=== PATIENT | male | born 1945 | race Caucasian/White ===

== ENCOUNTER 2018-02-27 09:51 | Inpatient (IN) | payer OTHER ==
[2018-02-24 10:56] VITALS: BP 117/51
[2018-02-24 11:05] LABS: BASOPHILS # (AUTO) 0.05 x10^3/uL (0-0.1); BASOPHILS % (AUTO) 1 % (0-1); EOSINOPHILS # (AUTO) 0.38 x10^3/uL (0-0.4); EOSINOPHILS % (AUTO) 5 % (1-7); LYMPHOCYTES # (AUTO) 2.18 x10^3/uL (1-3.4); LYMPHOCYTES % (AUTO) 31 % (22-44); MD NO; MEAN CORPUSCULAR HEMOGLOBIN 30.8 pg (27.5-34.5); MEAN CORPUSCULAR VOLUME 90.5 fL (81-97); MEAN PLATELET VOLUME 8.8 fL (7.4-10.4); MONOCYTES # (AUTO) 0.53 x10^3/uL (0.2-0.8); MONOCYTES % (AUTO) 8 % (2-9); NEUTROPHILS # (AUTO) 3.81 x10^3/uL (1.8-6.8); NEUTROPHILS % (AUTO) 55 % (42-75); PLATELET COUNT 320 x10^3/uL (130-400); RED CELL DISTRIBUTION WIDTH 12.8 % (9.4-14.8)
[2018-02-24 11:17] LABS: ANION GAP 7 mmol/L (5-15); CALCIUM 9.8 mg/dL (8.5-10.1); CHLORIDE 106 mmol/L (98-107); CREATININE 1.33 mg/dL (0.7-1.3)
[~2018-02-27] VITALS: Ht 175.3 cm; Wt 108.4 kg
[~2018-02-27 09:51] MED LIST: ASPI500T10 PO; CYAN500T18 PO; FLAX10002 PO; HUM100VI6 SQ-INSULIN; INSU100V8 SQ; LISI-167 PO; METF10002 PO; MULT-717 PO; NIAC10002 PO; OMEG500C PO; ROSU10TA PO; cholecalciferol PO
[2018-02-27] MEDS: SODIUM CHLORIDE 0.9% 1,000 ML IV SCH ×2 (10:05→18:05)
[2018-02-27] MEDS ORDERED: CEFAZOLIN PMX 1GM/50ML 50 ML IVPB ONE (10:30)
[2018-02-27 10:45] LABS: ANION GAP 8 mmol/L (5-15); CALCIUM 8.8 mg/dL (8.5-10.1); CHLORIDE 109 mmol/L (98-107); CREATININE 1.17 mg/dL (0.7-1.3)
[2018-02-27] MEDS ORDERED: FENTANYL PF 100 MCG/2ML ONE (11:11)
[2018-02-27] MEDS ORDERED: CEFAZOLIN PMX 1GM/50ML 50 ML ONE (11:11)
[2018-02-27] MEDS ORDERED: MIDAZOLAM 1 MG/ML, 5ML ONE (11:11)
[2018-02-27] MEDS ORDERED: CEFAZOLIN 1,000 MG ONE (11:11)
[2018-02-27] MEDS ORDERED: ZOLPIDEM 5MG TABLET PO PRN (13:00)
[2018-02-27] MEDS ORDERED: HYDROcodone/APAP 5/325 TABLET PO PRN (13:00)
[2018-02-27] MEDS ORDERED: HOLD MEDICATION MC PRN (13:00)
[2018-02-27 15:27] VITALS: BP 111/69
[2018-02-27] MEDS: CEFAZOLIN PMX 1GM/50ML 50 ML IVPB SCH (17:49)
[2018-02-27 18:55] VITALS: BP 107/60
[2018-02-27] MEDS: metFORMIN 500 MG TABLET PO SCH (20:30)
[2018-02-27] MEDS ORDERED: SODIUM CHLORIDE FLUSH 10ML SYR IVF SCH (21:00)
[2018-02-27] MEDS ORDERED: ATORVASTATIN 20 MG TABLET PO SCH (21:00)
[2018-02-28] MEDS: SODIUM CHLORIDE 0.9% 1,000 ML IV SCH (02:05)
[2018-02-28] MEDS: CEFAZOLIN PMX 1GM/50ML 50 ML IVPB SCH ×2 (02:06→10:24)
[2018-02-28 02:57] VITALS: BP 108/68
[2018-02-28 07:46] VITALS: BP 118/67
[2018-02-28] MEDS: metFORMIN 500 MG TABLET PO SCH (08:13)
[2018-02-28] MEDS ORDERED: OMEGA-3/FISH OIL CAPSULE PO SCH (09:00)
[2018-02-28] MEDS ORDERED: NIACIN 500 MG TABLET.ER PO SCH (09:00)
[2018-02-28] MEDS ORDERED: CYANOCOBALAMIN 1,000 MCG TABLET PO SCH (09:00)
[2018-02-28] MEDS ORDERED: ASPIRIN 325 MG TABLET PO SCH (09:00)
[2018-02-28] MEDS ORDERED: FLAXSEED OIL 1200 MG PO SCH (09:00)
[2018-02-28] MEDS ORDERED: LISINOPRIL 10 MG TABLET PO SCH (09:00)
[2018-02-28] MEDS ORDERED: INSULIN GLARGINE 100 UNITS/ML, PEN SQ-INSULIN SCH (09:00)
[2018-02-28] MEDS ORDERED: CHOLECALCIFEROL 1,000 UNIT TABLET PO SCH (09:00)
== END 2018-02-28 12:05 | disposition home or self-care (01) | DRG 243 ==
LOC: CACL 09:51 → ORIP 12:39 → 5SO 13:12 → DCLOUNGE 02-28 11:46
PROVIDERS: ADMIT Internal Medicine Cardiovascular Disease; ATTEND Internal Medicine Cardiovascular Disease
PROC: 0JH606Z Insertion of Pacemaker, Dual Chamber into Chest Subcutaneous Tissue and Fascia, Open Approach (ICD-10-PCS; principal; 2018-02-27)
PROC: 02HK3JZ Insertion of Pacemaker Lead into Right Ventricle, Percutaneous Approach (ICD-10-PCS; 2018-02-27)
PROC: 02H63JZ Insertion of Pacemaker Lead into Right Atrium, Percutaneous Approach (ICD-10-PCS; 2018-02-27)
DX: I44.2 Atrioventricular block, complete (principal); D68.69 Other thrombophilia; M19.90 Unspecified osteoarthritis, unspecified site; I10 Essential (primary) hypertension; G47.30 Sleep apnea, unspecified; E78.5 Hyperlipidemia, unspecified; E11.9 Type 2 diabetes mellitus without complications; R79.89 Other specified abnormal findings of blood chemistry; Z82.49 Family history of ischemic heart disease and other diseases of the circulatory system; Z90.49 Acquired absence of other specified parts of digestive tract; Z79.84 Long term (current) use of oral hypoglycemic drugs
CPT/HCPCS: 33208; 36415; 71045; 71046; 80048; 82962; 85025; 93005; 99156; 99157; C1779; C1785; C1892; G0378; J0690; J2250; J3010; J1815